=== PATIENT | female | born 1975 | race Hispanic/Latino ===

== ENCOUNTER → 2024-10-29 | Outpatient (CLI) | payer BC | END | disposition home or self-care (01) | LOC: RAH 10:21 | PROVIDERS: ATTEND Obstetrics & Gynecology | DX: Z12.31 Encounter for screening mammogram for malignant neoplasm of breast (principal) | CPT/HCPCS: 77067 ==

== ENCOUNTER → 2024-11-17 | Outpatient (CLI) | payer BC ==
--- NOTE | 2024-11-22 10:56 | HMCIMG ---
BILATERAL BREAST ULTRASOUND: CLINICAL HISTORY: Follow-up for mammogram with heterogeneously moderately dense breasts. Finding: Real-time examination of the both breasts demonstrates heterogeneous echotexture throughout both the breasts. Patient has bilateral breast implants which are intact. The right breast at 12:00 there is a cyst measuring 0.4 x 0.5 x 0.6 cm. Right breast at 12:00 position of the cyst measuring 0.6 x 0.3 x 0.4 cm. The right breast at 1:00 there is a cyst measuring 0.5 x 0.4 x 0.4 cm. The right breast at 3:00 there is a hypoechoic lesion measuring 0.8 x 0.3 x 0.8 cm it is wider than tall. The right breast at 12:00 there is a complex cyst measuring 0.8 x 0.4 x 0.8 cm. The left breast has a 12:00 cyst and ductal ectasia. There is a left axillary lymph node measuring 1.2 x 1.0 x 1.0 cm. IMPRESSION: Fibrocystic changes The right breast at 3:00 there is a hypoechoic lesion measuring 0.8 x 0.3 x 0.8 cm. I would recommend follow-up in 3 months. FINAL ASSESSMENT: ACR: BI-RAD -3. Probably Benign: Finding(s) has a high probability of being benign; short term follow up is suggested. Management: Short-interval (6-month) follow-up or continued surveillance mammography. Likelihood of Cancer: 0% but <=2% likelihood of malignancy.
== END | disposition home or self-care (01) ==
LOC: RAH 13:08
PROVIDERS: ATTEND Obstetrics & Gynecology
DX: N60.11 Diffuse cystic mastopathy of right breast (principal); N60.12 Diffuse cystic mastopathy of left breast; R92.333 Mammographic heterogeneous density, bilateral breasts